=== PATIENT | female | born 2000 | race Caucasian/White ===

== ENCOUNTER 2021-01-14 10:25 | Outpatient (RCR) | payer OTHER, BC, SELFPAY ==
--- NOTE | 2021-01-14 12:29 | PC.NURSE ---
Patient is not vaccinated for COVID
[2021-01-14] MEDS: diphenhydrAMINE HCl CAP 25 MG CAPSULE PO (12:35)
[2021-01-14] MEDS: ACETAMINOPHEN 325 MG TABLET 650 MG PO (12:35)
[2021-01-14] MEDS: FAMOTIDINE 20 MG TABLET PO (12:36)
[2021-01-14 12:37] VITALS: BP 110/67; PULSE 97; RESP 22; TEMP 36.2; O2SAT 92
[2021-01-14 14:12] VITALS: BP 96/62; PULSE 93; RESP 22; TEMP 36.1; O2SAT 90
--- NOTE | 2021-01-14 14:30 | PC.NURSE ---
Patient arrived to infusion appointment with complaints of dyspnea on exertion and shortness of breath with SPO2 reading between 88-93%. Infusion was administered with patient denying shortness of breath. Upon discharge, patient requested a wheelchair and was reporting SOB again. RN educated patient that if home SPO2 monitor read below 90%, patient was to seek emergency medical care. Patient verbalized understanding and was then discharged home with family.
--- NOTE | 2021-01-15 11:12 | PC.NURSE ---
Called patient to follow-up regarding antibody infusion. Patient did not answer. Voicemail left asking for patient to return call.
== END 2021-01-14 16:00 | disposition home or self-care (01) ==
LOC: AMCINF 10:25
PROVIDERS: PCP Internal Medicine; Referring Provider Physician Assistant Medical; Visit Provider Internal Medicine Hematology & Oncology
DX: Z23 Encounter for immunization (principal); U07.1 COVID-19
CPT/HCPCS: A9270; M0243; Q0243